=== PATIENT | female | born 1990 | race Caucasian/White ===

== ENCOUNTER 2017-02-25 16:53 | Emergency (ER) | payer MEDICAID ==
--- NOTE | 2017-02-25 18:00 | ED Physician Documentation ---
PD HPI ABD PAIN - Stated complaint Stated Complaint: ABD PX - Chief complaint Chief Complaint: Abd Pain - History obtained from History obtained from: Patient - History of Present Illness Timing - onset: Yesterday Timing - duration: Days (03/25) Timing - details: Gradual onset, Still present Quality: Cramping, Aching, Pain Location: Periumbilical, RLQ Radiation: Lower back Improved by: Position. No: Eating Worsened by: Eating, Moving, Palpation. No: Breathing Associated symptoms: Nausea, Vomiting (few times), Diarrhea (small amount just few times.), Hematochezia (mild red blood with wiping.). No: Fever, Constipation, Melena, Dysuria Similar symptoms before: No diagnosis (she says history of crohns remotely but no regular problems nor meds.) Recently seen: Not recently seen Review of Systems Constitutional: reports: Myalgias. denies: Fever, Chills Eyes: denies: Photophobia Nose: denies: Rhinorrhea / runny nose, Congestion Throat: denies: Sore throat Cardiac: denies: Chest pain / pressure, Palpitations Respiratory: denies: Cough GI: reports: Abdominal Pain, Nausea, Vomiting, Diarrhea. denies: Abdominal Swelling, Constipation : denies: Dysuria, Frequency, Discharge, Irregular menses Skin: denies: Rash, Lesions Neurologic: reports: Generalized weakness. denies: Focal weakness, Numbness Endocrine: denies: Weight loss Immunocompromised: denies: Immunocompromised PD PAST MEDICAL HISTORY - Past Medical History Cardiovascular: None Respiratory: None Neuro: Headache/migraine Endocrine/Autoimmune: None GI: Crohn's disease Psych: Anxiety Musculoskeletal: Chronic back pain - Past Surgical History Past Surgical History: Yes General: Cholecystectomy HEENT: Tonsil/Adenoidectomy - Present Medications Home Medications: Ambulatory Orders Medication Instructions Recorded Confirmed Marijuana 08/29/13 01/31/14 Multivitamin [Multivitamins] 1 cap PO DAILY 01/19/16 02/25/17 Dexamethasone [Decadron] 4 mg PO DAILY #5 tablet 02/25/17 Docusate Sodium 100 mg PO DAILY #20 capsule 02/25/17 Ondansetron HCl [Zofran] 4 mg PO Q6H PRN #20 tablet 02/25/17 Oxycodone HCl/Acetaminophen 1 each PO Q6H PRN #20 tablet 02/25/17 [Percocet 5-325 mg Tablet] - Allergies Allergies/Adverse Reactions: Allergies Allergy/AdvReac Type Severity Reaction Status Date / Time adhesive AdvReac Unknown Rash Verified 02/25/17 17:09 maitake mushroom AdvReac Unknown Respiratory Verified 02/25/17 17:09 soaps AdvReac Unknown Rash Uncoded 02/25/17 17:09 - Social History Does the pt smoke?: No Smoking Status: Never smoker Does the pt drink ETOH?: No Does the pt have substance abuse?: No - Immunizations Immunizations are current?: Yes - POLST Patient has POLST: No PD ED PE NORMAL - Vitals Vital signs reviewed: Yes - General General: Alert and oriented X 3, Well developed/nourished, Other (appears in pain) - HEENT HEENT: PERRL (nonicteric), Ears normal, Pharynx benign. No: Moist mucous membranes - Neck Neck: Supple, no meningeal sign, No adenopathy - Cardiac Cardiac: RRR, No murmur - Respiratory Respiratory: Clear bilaterally - Abdomen Abdomen: Normal bowel sounds, Soft, Non distended, No organomegaly, Other ( tender with guarding RLQ and some percussion tenderness. No rebound. ) - Female Female : Deferred - Rectal Rectal: Deferred - Back Back: No CVA TTP - Derm Derm: Normal color, Warm and dry - Neuro Neuro: Alert and oriented X 3, No motor deficit, Normal speech Results - Vitals Vitals: Oxygen O2 Source Room air - Labs Labs: Laboratory Tests 02/25/17 02/25/17 02/25/17 07:30 18:55 18:55 WBC 8.1 RBC 4.09 L Hgb 12.2 Hct 36.9 L MCV 90.3 MCH 29.9 MCHC 33.1 RDW 13.3 Plt Count 224 MPV 8.6 Neut # 4.5 Lymph # 2.7 [place] # 0.7 Eos # 0.2 Baso # 0.0 Absolute Nucleated RBC 0.00 Nucleated RBC % 0.0 Sodium 138 Potassium 3.3 L Chloride 105 Carbon Dioxide 25 Anion Gap 8.0 BUN 12 Creatinine 0.9 Estimated GFR (MDRD) 75 L Glucose 100 Calcium 8.5 Total Bilirubin 0.7 AST 18 ALT 11 Alkaline Phosphatase 42 Total Protein 6.4 L Albumin 3.7 Globulin 2.7 Albumin/Globulin Ratio 1.4 Lipase 27 Urine Color YELLOW Urine Clarity CLEAR Urine pH 7.0 Ur Specific [place] 1.015 Urine Protein NEGATIVE Urine Glucose (UA) NEGATIVE Urine Ketones NEGATIVE Urine Occult Blood SMALL H Urine Nitrite NEGATIVE Urine Bilirubin NEGATIVE Urine Urobilinogen 0.2 (NORMAL) Ur Leukocyte Esterase NEGATIVE Urine RBC 0-5 Urine WBC 0-3 Ur Squamous Epith Cells RARE Squamous Urine Bacteria Rare Ur Microscopic Review INDICATED Urine Culture Comments NOT INDICATED Urine HCG, Qual NEGATIVE - Rads (name of study) abd CT Radiology: Prelim report reviewed (normal appendix. No other acute process noted. ), EMP read contemporaneously (did CT as I felt appy was highest likely. CT appears normal. ) PD MEDICAL DECISION MAKING - ED course Complexity details: reviewed results, re-evaluated patient (feeling better after couple doses of meds. She says she has h/o Crohns, so consider episode of that versus viral GE or such. CT shows normal appendix, which was initial main concern. ), considered differential, d/w patient Departure - Departure Disposition: 01 Home, Self Care Clinical Impression: Colitis Abdominal pain Qualifiers: Abdominal location: right lower quadrant Qualified Code(s): R10.31 - Right lower quadrant pain Condition: Stable Record reviewed to determine appropriate education?: Yes Instructions: ED Abdominal Pain Unkn Cause Prescriptions: Dexamethasone [Decadron] 4 mg PO DAILY #5 tablet Docusate Sodium 100 mg PO DAILY #20 capsule Ondansetron HCl [Zofran] 4 mg PO Q6H PRN #20 tablet PRN Reason: Nausea / Vomiting Oxycodone HCl/Acetaminophen [Percocet 5-325 mg Tablet] 1 each PO Q6H PRN #20 tablet PRN Reason: Pain Comments: Your CT shows a normal appendix and no other obvious acute process. Your symptoms would go along with the idea of colitis. We will go with some anti- inflammatories of Decadron steroid daily for 5 days. Use a stool softener docusate once or twice daily for the next week to soften the stool. Add Tylenol or Percocet if needed for pain. Recheck if not improved over the next few days in particular if worsening pain, fever, bloody's stool worsening, repetitive vomiting, other concerns. Discharge Date/Time: 02/25/17 21:39
[2017-02-25] MEDS ORDERED: ONDANSETRON 4 MG/2 ML VIAL IVP STA (18:17)
[2017-02-25] MEDS ORDERED: SODIUM CHLORIDE 0.9% 1,000 ML IV ONE (18:17)
[2017-02-25] MEDS ORDERED: KETOROLAC 60 MG/2 ML VIAL IVP STA (18:17)
[2017-02-25] MEDS ORDERED: ONDANSETRON 4 MG/2 ML VIAL ONE (18:43)
[2017-02-25] MEDS ORDERED: KETOROLAC 30 MG/ML VIAL ONE (18:43)
[2017-02-25 19:07] LABS: BASOPHILS % (AUTO) 0.5 %; EOSINOPHILS # (AUTO) 0.2 10^3/uL (0.0-0.7); HGB - HEMOGLOBIN 12.2 g/dL (12.0-16.0); LYMPHOCYTES # (AUTO) 2.7 10^3/uL (1.5-3.5); LYMPHOCYTES % (AUTO) 32.9 %; MEAN CORPUSCULAR HEMOGLOBIN 29.9 pg (27.0-31.0); MEAN CORPUSCULAR HGB CONC 33.1 g/dL (32.0-36.0); MEAN CORPUSCULAR VOLUME 90.3 fL (81.0-99.0); MEAN PLATELET VOLUME 8.6 fL (7.9-10.8); MONOCYTES # (AUTO) 0.7 10^3/uL (0.0-1.0); MONOCYTES % (AUTO) 9.2 %; NEUTROPHILS # (AUTO) 4.5 10^3/uL (1.5-6.6); NEUTROPHILS % (AUTO) 55.4 %; PLT - PLATELET COUNT 224 10^3/uL (130-450); RED BLOOD COUNT 4.09 10^6/uL (4.20-5.40); RED CELL DISTRIBUTION WIDTH 13.3 % (12.0-15.0); WHITE BLOOD COUNT 8.1 x10^3/uL (4.8-10.8)
[2017-02-25 19:15] LABS: ALBUMIN 3.7 g/dL (3.2-5.5); ALBUMIN/GLOBULIN RATIO 1.4 (1.0-2.2); BILIRUBIN,TOTAL 0.7 mg/dL (0.2-1.0); CALCIUM 8.5 mg/dL (8.5-10.3); CREATININE 0.9 mg/dL (0.4-1.0); TOTAL PROTEIN 6.4 g/dL (6.7-8.2)
[2017-02-25] MEDS ORDERED: IOPAMIDOL-300 100 ML VIAL ONE (19:24)
[2017-02-25 19:41] LABS: BILIRUBIN,URINE NEGATIVE (NEGATIVE); GLUCOSE, URINE (UA) NEGATIVE (NEGATIVE); KETONES,URINE (UA) NEGATIVE (NEGATIVE); LEUKOCYTE ESTERASE, URINE NEGATIVE (NEGATIVE); NITRITE,URINE NEGATIVE (NEGATIVE); OCCULT BLOOD,URINE SMALL (NEGATIVE); PROTEIN,URINE NEGATIVE (NEGATIVE); UROBILINOGEN,URINE 0.2 (NORMAL) E.U./dL (NORMAL)
[2017-02-25] MEDS ORDERED: HYDROmorphone 1 MG/ML SYRINGE IVP STA ×2 (19:41→20:57)
[2017-02-25] MEDS ORDERED: METOCLOPRAMIDE 10 MG/2 ML VIAL IVP STA (19:41)
[2017-02-25] MEDS ORDERED: diphenhydrAMINE INJ 50 MG/ML VIAL IVP STA (19:42)
[2017-02-25 19:43] LABS: CLARITY,URINE CLEAR (CLEAR); HCG UR QUAL NEGATIVE
[2017-02-25 19:47] LABS: BACTERIA,URINE Rare /HPF (None Seen); RBC,URINE 0-5 /HPF (0-5); SQUAMOUS EPITHELIAL CELL,UR RARE Squamous (<= Few)
[2017-02-25] MEDS ORDERED: HYDROmorphone 1 MG/ML SYRINGE ONE ×2 (20:01→21:08)
[2017-02-25] MEDS ORDERED: METOCLOPRAMIDE 10 MG/2 ML VIAL ONE (20:01)
[2017-02-25] MEDS ORDERED: diphenhydrAMINE INJ 50 MG/ML VIAL ONE (20:02)
[2017-02-25] MEDS ORDERED: IOPAMIDOL-300 100 ML VIAL IVP ONE (20:12)
--- NOTE | 2017-02-25 20:35 | CT Preliminary Report ---
Exam: CT ABDOMEN/PELVIS W/ IMPRESSION: 1. Status post cholecystectomy. 2. No evidence of appendicitis or other acute inflammatory process. 3. Splenic cyst. [facility] SITE ID: [id number]
--- NOTE | 2017-02-25 20:38 | CT Report ---
EXAM: CT ABDOMEN AND PELVIS EXAM DATE: 02/25/2017 08:01 PM. CLINICAL HISTORY: RLQ abd pain today, worsening. COMPARISONS: 08/30/2013 CT. TECHNIQUE: Routine helical CT imaging was performed through the abdomen and pelvis. IV contrast: 100 ML ISOVUE 300. Enteric contrast: No. Reconstructions: Coronal and sagittal. In accordance with CT protocol optimization, one or more of the following dose reduction techniques w ere utilized for this exam: automated exposure control, adjustment of mA and/or KV based on patient s ize, or use of iterative reconstructive technique. FINDINGS: Lung Bases: Unremarkable. Liver: Normal. No masses. Gallbladder/Bile Ducts: The gallbladder has been removed. No bile duct dilatation. Spleen: There is a 2.6 cm splenic cyst. No splenomegaly. Pancreas: Normal. Adrenal Glands: Normal. Kidneys: Normal. No masses or hydronephrosis. Peritoneal Cavity/Bowel: Normal. No free fluid, free air or adenopathy. No masses or acute inflammato ry process. No evidence of appendicitis. Pelvic Organs: Normal. The bladder and visualized pelvic organs are within normal limits. Vasculature: No aneurysms or other significant abnormality. Bones: No significant abnormality. Other: None. IMPRESSION: 1. Status post cholecystectomy. 2. No evidence of appendicitis or other acute inflammatory process. 3. Splenic cyst. [facility] Referring Provider Line: [phone] SITE ID: [id number]
[2017-02-25] MEDS ORDERED: DEXAMETHASONE 10 MG/ML VIAL IVP STA (20:58)
[2017-02-25] MEDS ORDERED: oxyCODONE/ACET 5/325 Prepack 4 PO STA (20:58)
[2017-02-25] MEDS ORDERED: ONDANSETRON ODT 4 MG Prepack 2 TL PRN (20:58)
[2017-02-25] MEDS ORDERED: DOCUSATE SODIUM 100 MG CAPSULE PO STA (20:59)
[2017-02-25] MEDS ORDERED: DOCUSATE SODIUM 100 MG CAPSULE PO ONE (21:09)
[2017-02-25] MEDS ORDERED: oxyCODONE/ACET 5/325 Prepack 4 PO ONE (21:09)
[2017-02-25] MEDS ORDERED: DEXAMETHASONE 10 MG/ML VIAL ONE (21:09)
[2017-02-25] MEDS ORDERED: ONDANSETRON ODT 4 MG Prepack 2 TL ONE (21:10)
[2017-02-25 21:39] VITALS: BP 108/72
== END 2017-02-25 21:39 | disposition home or self-care (01) ==
LOC: ED 16:53
DX: K52.9 Noninfective gastroenteritis and colitis, unspecified (principal); R10.31 Right lower quadrant pain
CPT/HCPCS: 36415; 74177; 80053; 81001; 81025; 83690; 85025; 96361; 96374; 96375; 96376; 99284; A9270; J1170; Q9967; 81003; 87086

== ENCOUNTER 2018-08-30 14:27 | Outpatient (CLI) | payer MEDICAID ==
[2018-08-30 15:35] LABS: ALT ALANINE AMINOTRANSFERASE 17 IU/L (10-60); AST ASPARTATE AMINOTRANSFERASE 26 IU/L (10-42); CHOL/HDL RATIO 5.7 (<4.4); CHOLESTEROL 269 mg/dL; HDL CHOLESTEROL 47 mg/dL; LDL CHOLESTEROL,CALCULATED 172 mg/dL; LDL/HDL RATIO 3.7 (<4.4); VLDL CHOLESTEROL 50 mg/dL
[2018-08-30 18:19] LABS: HCG,QUALITATIVE BLOOD NEGATIVE
== END 2018-08-30 14:28 | disposition home or self-care (01) ==
LOC: LAB 14:27
PROVIDERS: ATTEND Physician Assistant Medical
DX: L70.0 Acne vulgaris (principal); Z79.899 Other long term (current) drug therapy
CPT/HCPCS: 80061; 83721; 84450; 84460; 84703

== ENCOUNTER 2019-02-23 17:11 | Emergency (ER) | payer MEDICAID | END 2019-02-23 17:22 | disposition left against medical advice (07) | LOC: ED 17:11 | DX: Z53.21 Procedure and treatment not carried out due to patient leaving prior to being seen by health care provider (principal) ==

== ENCOUNTER 2019-08-25 14:11 | Outpatient (CLI) | payer MEDICAID | END 2019-08-25 14:12 | disposition home or self-care (01) | LOC: LAB 14:11 | DX: Z53.9 Procedure and treatment not carried out, unspecified reason (principal) ==

== ENCOUNTER 2019-12-26 14:10 | Outpatient (CLI) | payer MEDICAID | END 2019-12-26 14:11 | disposition home or self-care (01) | LOC: LAB 14:10 | PROVIDERS: ATTEND Internal Medicine | DX: Z01.84 Encounter for antibody response examination (principal) | CPT/HCPCS: 36415; 86735; 86762; 86765 ==

== ENCOUNTER 2020-03-15 13:38 | Emergency (ER) | payer MEDICAID ==
[2020-03-15] MEDS ORDERED: KETOROLAC 30 MG/ML VIAL IVP STA (14:29)
[2020-03-15] MEDS ORDERED: SODIUM CHLORIDE 0.9% 1,000 ML IV STA (14:29)
[2020-03-15] MEDS ORDERED: ONDANSETRON 4 MG/2 ML VIAL IVP STA (14:29)
[2020-03-15] MEDS ORDERED: PIPERACILLIN/TAZOBACTAM 3.375 GM in SODIUM CHLORIDE 0.9% MINIBAG 100 ML IV STA (14:29)
[2020-03-15] MEDS ORDERED: HYDROmorphone 1 MG/ML CARPUJECT IVP STA (14:29)
--- NOTE | 2020-03-15 14:32 | ED Physician Documentation ---
PD HPI HEENT - Stated complaint Stated Complaint: FACE SWELLING - Chief complaint Chief Complaint: Heent - History obtained from History obtained from: Patient - History of Present Illness Timing - onset: Yesterday Timing - duration: Days (1) Timing - details: Abrupt onset, Still present Location: Tooth Improves: Medication Worsens: Everything Associated symptoms: Facial swelling, Other (vomiting) Similar symptoms before: Diagnosis (dental abscess) Recently seen: Other - Additional information Additional information: 29-year-old female was in to see the dentist yesterday had a partial root canal done on the left upper molar and overnight she has had difficulty with facial swelling nausea vomiting and pain. She is unable to keep her pain medications or her antibiotic down. Review of Systems Constitutional: denies: Fever Eyes: denies: Decreased vision Ears: denies: Ear pain Nose: reports: Congestion Throat: reports: Dental pain / toothache Cardiac: denies: Chest pain / pressure, Palpitations Respiratory: denies: Dyspnea, Cough PD PAST MEDICAL HISTORY - Past Medical History Cardiovascular: None Respiratory: None Endocrine/Autoimmune: None GI: Crohn's disease Psych: Anxiety, Bipolar disorder Musculoskeletal: Chronic back pain - Past Surgical History Past Surgical History: Yes General: Cholecystectomy HEENT: Tonsil/Adenoidectomy - Present Medications Home Medications: Ambulatory Orders Medication Instructions Recorded Confirmed Marijuana 08/29/13 01/31/14 Multivitamin [Multivitamins] 1 cap PO DAILY 01/19/16 03/15/20 Ondansetron HCl [Zofran] 4 mg PO Q6H PRN #20 tablet 02/25/17 03/15/20 [place] 300 mg PO DAILY 03/15/20 03/15/20 Methylphenidate HCl [Concerta] 54 mg PO DAILY 03/15/20 03/15/20 Ondansetron Odt [Zofran] 4 mg TL Q6H PRN #10 tablet 03/15/20 hydrOXYzine HCL [Hydroxyzine HCl] 25 mg PO DAILY 03/15/20 03/15/20 lamoTRIgine [Lamictal] 150 mg PO DAILY 03/15/20 03/15/20 - Allergies Allergies/Adverse Reactions: Allergies Allergy/AdvReac Type Severity Reaction Status Date / Time adhesive AdvReac Unknown Rash Verified 03/15/20 13:41 maitake mushroom AdvReac Unknown Respiratory Verified 03/15/20 13:41 soaps AdvReac Unknown Rash Uncoded 02/25/17 17:09 - Social History Does the pt smoke?: No Smoking Status: Former smoker Does the pt drink ETOH?: No Does the pt have substance abuse?: No Substance Use and Type: Marijuana - Immunizations Immunizations are current?: Yes - POLST Patient has POLST: No PD ED PE NORMAL - Vitals Vital signs reviewed: Yes (Hypertensive) - General General: Alert and oriented X 3, Well developed/nourished, Other (Appears to be in pain with swelling to the left face and tears) - HEENT HEENT: Atraumatic, PERRL, Other (Swelling to the left face over the maxilla and examination of the tooth shows what appears to be a filled area recently drilled and the tooth itself is tender there is no swelling to the lingular or buccal folds. 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, No motor deficit, No sensory deficit, Normal speech Eye Opening: Spontaneous Motor: Obeys Commands Verbal: Oriented GCS Score: 15 - Psych Psych: Other (Mood is painful affect is flattened) Results - Vitals Vitals: Vital Signs - 24 hr 03/15/20 13:41 Temperature 36 C L Heart Rate 70 Respiratory 18 Rate Blood Pressure 139/78 H O2 Saturation 97 Oxygen O2 Source Room air - Labs Labs: Laboratory Tests 03/15/20 03/15/20 15:31 15:31 WBC 11.7 H RBC 4.42 Hgb 13.2 Hct 40.6 MCV 91.9 MCH 29.9 MCHC 32.5 RDW 12.8 Plt Count 266 MPV 10.0 Neut # (Auto) 9.5 H Lymph # (Auto) 1.1 L [place] # (Auto) 0.9 Eos # (Auto) 0.1 Baso # (Auto) 0.0 Absolute Nucleated RBC 0.00 Nucleated RBC % 0.0 Sodium 138 Potassium 3.7 Chloride 106 Carbon Dioxide 22 Anion Gap 10.0 BUN 11 Creatinine 0.6 Estimated GFR (MDRD) 117 Glucose 115 H Calcium 8.9 Total Bilirubin 0.4 AST 20 ALT 14 Alkaline Phosphatase 59 Total Protein 7.3 Albumin 3.9 Globulin 3.4 Albumin/Globulin Ratio 1.1 Lipase 19 L PD MEDICAL DECISION MAKING - ED course Complexity details: considered differential, d/w patient ED course: 29-year-old female with a partial root canal and evidence of infection has not been able to hold her pain medication or antibiotic down. She is administered a liter of saline Zosyn intravenously Zofran Toradol and Dilaudid. Departure - Departure Disposition: 01 Home, Self Care Clinical Impression: Dental abscess Condition: Stable Instructions: ED Abscess Dental Follow-Up: Laly Harding MD [Primary Care Provider] - Prescriptions: Ondansetron Odt [Zofran] 4 mg TL Q6H PRN #10 tablet PRN Reason: Nausea / Vomiting
[2020-03-15 15:42] LABS: BASOPHILS % (AUTO) 0.2 %; EOSINOPHILS # (AUTO) 0.1 10^3/uL (0.0-0.7); EOSINOPHILS % (AUTO) 0.6 %; HGB - HEMOGLOBIN 13.2 g/dL (12.0-16.0); LYMPHOCYTES # (AUTO) 1.1 10^3/uL (1.5-3.5); LYMPHOCYTES % (AUTO) 9.7 %; MEAN CORPUSCULAR HEMOGLOBIN 29.9 pg (27.0-31.0); MEAN CORPUSCULAR HGB CONC 32.5 g/dL (32.0-36.0); MEAN CORPUSCULAR VOLUME 91.9 fL (81.0-99.0); MONOCYTES # (AUTO) 0.9 10^3/uL (0.0-1.0); NEUTROPHILS # (AUTO) 9.5 10^3/uL (1.5-6.6); NEUTROPHILS % (AUTO) 81.2 %; PLT - PLATELET COUNT 266 10^3/uL (130-450); RED BLOOD COUNT 4.42 10^6/uL (4.20-5.40); RED CELL DISTRIBUTION WIDTH 12.8 % (12.0-15.0); WHITE BLOOD COUNT 11.7 x10^3/uL (4.8-10.8)
[2020-03-15 15:56] LABS: ALBUMIN 3.9 g/dL (3.2-5.5); ALBUMIN/GLOBULIN RATIO 1.1 (1.0-2.2); BILIRUBIN,TOTAL 0.4 mg/dL (0.2-1.0); CALCIUM 8.9 mg/dL (8.5-10.3); CREATININE 0.6 mg/dL (0.4-1.0); TOTAL PROTEIN 7.3 g/dL (6.7-8.2)
[2020-03-15] MEDS ORDERED: DEXAMETHASONE 10 MG/ML VIAL IVP STA (16:04)
[2020-03-15 16:54] VITALS: BP 112/67
== END 2020-03-15 16:55 | disposition home or self-care (01) ==
LOC: ED 13:38
DX: K04.7 Periapical abscess without sinus (principal); Z98.818 Other dental procedure status; R11.2 Nausea with vomiting, unspecified; Z87.891 Personal history of nicotine dependence
CPT/HCPCS: 36415; 80053; 83690; 85025; 96365; 96375; 99284; 99285; J1170

== ENCOUNTER 2020-03-18 19:22 | Emergency (ER) | payer MEDICAID ==
[2020-03-18] MEDS ORDERED: AMOX/CLAV 875 MG/125 MG TABLET PO STA (19:47)
[2020-03-18] MEDS ORDERED: oxyCODONE 5 MG TABLET PO STA (19:47)
--- NOTE | 2020-03-18 19:48 | ED Physician Documentation ---
History of Present Illness - Stated complaint Stated Complaint: TOOTH PX - Chief complaint Chief Complaint: Heent - History obtained from History obtained from: Patient - Additonal information Additional information: 29-year-old female presents to the emergency department with worsening left upper mouth pain. She underwent a partial root canal on03/14/2020. A partial Root canal was done secondary to infection. The patient was placed on amoxicillin and has a follow-up appointment with her oral surgeon scheduled for 03/30/2020. She was seen here in the emergency department 03/15/[address] Stefania padron. She presented to the ER because she been having nausea and was unable to keep her amoxicillin down. She was given an IV dose of Zosyn and discharged home. Since being seen in the emergency department 3 days ago she reports that the swelling is essentially the same though may be somewhat improved however the pain is worsening and persistent. She is taking ibuprofen and Tylenol without relief. no fevers, no trismus. no dysphonia. normal swallow She does report a history of C. difficile infection about 5 years ago. This was the reason that her dentist did not prescribe Augmentin. She also is honest about a history of previous opiate abuse. Review of Systems Constitutional: denies: Fever, Chills Eyes: reports: Reviewed and negative Ears: reports: Reviewed and negative Nose: reports: Reviewed and negative Throat: reports: Dental pain / toothache. denies: Oral lesions / sores, Sore throat, Swollen tonsils Cardiac: reports: Reviewed and negative Respiratory: reports: Reviewed and negative GI: reports: Reviewed and negative : reports: Reviewed and negative Skin: reports: Reviewed and negative Musculoskeletal: reports: Neck pain PD PAST MEDICAL HISTORY - Past Medical History Past Medical History: Yes Cardiovascular: None Respiratory: None Endocrine/Autoimmune: None GI: Crohn's disease Psych: Anxiety, Bipolar disorder Musculoskeletal: Chronic back pain - Past Surgical History Past Surgical History: Yes General: Cholecystectomy HEENT: Tonsil/Adenoidectomy - Present Medications Home Medications: Ambulatory Orders Medication Instructions Recorded Confirmed Marijuana 08/29/13 01/31/14 Multivitamin [Multivitamins] 1 cap PO DAILY 01/19/16 03/18/20 Ondansetron HCl [Zofran] 4 mg PO Q6H PRN #20 tablet 02/25/17 03/18/20 [place] 300 mg PO DAILY 03/15/20 03/18/20 Methylphenidate HCl [Concerta] 54 mg PO DAILY 03/15/20 03/18/20 Ondansetron Odt [Zofran] 4 mg TL Q6H PRN #10 tablet 03/15/20 03/18/20 hydrOXYzine HCL [Hydroxyzine HCl] 25 mg PO DAILY 03/15/20 03/18/20 lamoTRIgine [Lamictal] 150 mg PO DAILY 03/15/20 03/18/20 Amox/Clav 875/125 [Augmentin] 1 each PO Q12H #14 tablet 03/18/20 L. Acidophilus/L.bulgaricus 1 each PO BID #30 tablet 03/18/20 [Lactobacillus Tablet] Oxycodone HCl/Acetaminophen 1 - 2 each PO BID #10 tablet 03/18/20 [Percocet 5-325 mg Tablet] - Allergies Allergies/Adverse Reactions: Allergies Allergy/AdvReac Type Severity Reaction Status Date / Time adhesive AdvReac Unknown Rash Verified 03/15/20 13:41 maitake mushroom AdvReac Unknown Respiratory Verified 03/15/20 13:41 soaps AdvReac Unknown Rash Uncoded 02/25/17 17:09 - Social History Does the pt smoke?: No Smoking Status: Never smoker Does the pt drink ETOH?: No Does the pt have substance abuse?: No - Immunizations Immunizations are current?: Yes - POLST Patient has POLST: No PD ED PE EXPANDED - General General: Alert, In Pain - HEENT HEENT: No: Dentition normal (Swelling of the left face from Nabel nasolabial fold to the cheek. Tooth #15 is partially drilled and decayed. There is no gumline swelling or fluctuance. No drainage visible. generally tender) Results - Vitals Vitals: Vital Signs - 24 hr 03/18/20 03/18/20 19:26 19:30 Temperature 36.7 C 36.7 C Heart Rate 71 71 Respiratory 16 16 Rate Blood Pressure 118/73 118/73 O2 Saturation 99 99 Oxygen O2 Source Room air PD MEDICAL DECISION MAKING - ED course Complexity details: reviewed results, re-evaluated patient, considered differential ED course: 29-year-old female presents emergency department with worsening left upper mouth pain and facial swelling at the site of a recent partial root canal. She was seen in this ER for similar 3 days ago. Though the swelling has not worsened it has not improved and she is having worsening pain. She does report a history of C. difficile infection however Augmentin is likely a better antibiotic of choice to treat dental infections. We did have a risk-benefit discussion at the bedside and patient agrees to begin Augmentin and stop her amoxicillin. I have advised her to take lactobacillus with this every day. I will also write a very limited prescription for Percocet use at home as it is exquisitely tender. Reassuringly she has no fevers, trismus, or dysphonia. She has a normal swallow She will be calling her oral surgeon on Friday for sooner follow-up. If her symptoms are worsening she has fevers facial redness increased swelling she will return immediately to the ER. At that time we may consider CT imaging of the face. Departure - Departure Disposition: , Self Care Clinical Impression: Dental abscess Condition: Stable Record reviewed to determine appropriate education?: Yes Prescriptions: Amox/Clav 875/125 [Augmentin] 1 each PO Q12H #14 tablet L. Acidophilus/L.bulgaricus [Lactobacillus Tablet] 1 each PO BID #30 tablet Oxycodone HCl/Acetaminophen [Percocet 5-325 mg Tablet] 1 - 2 each PO BID #10 tablet Comments: Cheryle please stop taking the amoxicillin. I would like you to instead begin taking the Augmentin tomorrow. There is a higher risk of developing C. difficile diarrhea with this antibiotic however I do feel will better treat the infection in your mouth. Please also take lactobacillus 2-3 times a day when taking this antibiotic. I have prescribed a very limited amount of Percocet to help with your pain. It is critical that you discuss your 2 ED visits with your oral surgeon on Friday. I would like you to be seen sooner than March 30. If at any point you have increased swelling, any fevers, cannot speak or swallow normally please return immediately to the ER. Do not drive if taking Percocet it can legally intoxicated you and impair your ability to operate a vehicle
[2020-03-18 20:04] VITALS: BP 115/73
== END 2020-03-18 20:03 | disposition home or self-care (01) ==
LOC: ED 19:22
DX: K04.7 Periapical abscess without sinus (principal); Z98.818 Other dental procedure status; Z87.19 Personal history of other diseases of the digestive system
CPT/HCPCS: 99283; A9270

== ENCOUNTER 2020-08-25 01:27 | Emergency (ER) | payer MEDICAID ==
--- OUTSIDE RECORDS SUMMARY | 2020-08-25 01:32 | EXTERNAL MEDICAL SUMMARY RPT | Continuity of Care Document ---
:1990 Demographics Phone Unavailable Preferred Language Unknown Marital Status Unknown Buddhist Affiliation Unknown Race Unknown Ethnic Group Unknown Author Organization [facility] Address [address] [place] [address] Phone Allergies Encounters Medications Problems Results
--- OUTSIDE RECORDS SUMMARY | 2020-08-25 01:37 | EXTERNAL MEDICAL SUMMARY RPT | Continuity of Care Document ---
:1990 Demographics Phone Unavailable Preferred Language Unknown Marital Status Unknown Bahai Affiliation Unknown Race Unknown Ethnic Group Unknown Author Organization [facility] Address [address] [place] [address] Phone Allergies Encounters Medications Problems Results
--- NOTE | 2020-08-25 01:40 | ED Physician Documentation ---
PD HPI LOWER EXT INJURY - Stated complaint Stated Complaint: L ANKLE PX - History obtained from History obtained from: Patient - History of Present Illness PD HPI LOW EXT INJURY LOCATION: Left, Ankle Type of injury: Twist (inversion, stepping on edge of curb.) Timing - onset: Yesterday Timing - details: Abrupt onset Improved by: Immobilization Worsened by: Moving, Palpating, Other (walking) Associated symptoms: Swelling. No: Weakness, Numbness Similar symptoms before: Has not had sx before Review of Systems Constitutional: denies: Fever, Chills Nose: denies: Rhinorrhea / runny nose, Congestion Throat: denies: Sore throat Respiratory: denies: Cough Skin: denies: Abrasion (s), Laceration (s) Musculoskeletal: denies: Back pain Neurologic: denies: Focal weakness, Numbness PD PAST MEDICAL HISTORY - Past Medical History Cardiovascular: None Respiratory: None Endocrine/Autoimmune: None GI: Crohn's disease Psych: Anxiety, Bipolar disorder Musculoskeletal: Chronic back pain - Past Surgical History Past Surgical History: Yes General: Cholecystectomy HEENT: Tonsil/Adenoidectomy - Present Medications Home Medications: Ambulatory Orders Medication Instructions Recorded Confirmed Multivitamin [Multivitamins] 1 cap PO DAILY 01/19/16 08/25/20 [place] [[place] Carbonate] 300 mg PO DAILY 03/15/20 08/25/20 Methylphenidate HCl [Concerta] 54 mg PO DAILY 03/15/20 08/25/20 hydrOXYzine HCL [Hydroxyzine HCl] 25 mg PO HS 03/15/20 08/25/20 lamoTRIgine [Lamictal] 150 mg PO DAILY 03/15/20 08/25/20 - Allergies Allergies/Adverse Reactions: Allergies Allergy/AdvReac Type Severity Reaction Status Date / Time adhesive AdvReac Unknown Rash Verified 08/25/20 01:44 maitake mushroom AdvReac Unknown Respiratory Verified 08/25/20 01:44 soaps AdvReac Unknown Rash Uncoded 02/25/17 17:09 - Social History Does the pt smoke?: No Smoking Status: Never smoker Does the pt drink ETOH?: No Does the pt have substance abuse?: No - Immunizations Immunizations are current?: Yes - POLST Patient has POLST: No PD ED PE NORMAL - Vitals Vital signs reviewed: Yes - General General: Alert and oriented X 3, No acute distress, Well developed/nourished - Derm Derm: Normal color, Warm and dry, No rash - Extremities Extremities: Other (left ankle tender at ATFL area. Achilees and medially not tender. Mild swelling laterally. Hurts for flex/ext and eversion of ankle.) - Neuro Neuro: No motor deficit, No sensory deficit Results - Vitals Vitals: Vital Signs - 24 hr 08/25/20 08/25/20 08/25/20 01:41 02:42 03:59 Temperature 36.8 C Heart Rate 91 76 Respiratory 16 15 16 Rate Blood Pressure 131/72 H 120/76 O2 Saturation 100 99 Oxygen O2 Source Room air - Rads (name of study) left ankle Radiology: Prelim report reviewed (no fractures), See rad report PD MEDICAL DECISION MAKING - ED course Complexity details: reviewed results, considered differential (ankle sprain), d/w patient Departure - Departure Disposition: 01 Home, Self Care Clinical Impression: Sprain of lateral ligament of ankle joint Condition: Stable Instructions: ED Sprain Ankle Follow-Up: Laly Harding MD [Primary Care Provider] - Comments: Use ankle brace when up and around for the next 2 to 3 weeks. Ice elevate and rest the ankle often to reduce swelling. Anti-inflammatory such as ibuprofen 3 times a day with food. To that add Tylenol every 4-6 hours if needed for pain. I would anticipate improvement in the pain over the next 4 to 5 days but 2 to 3 weeks for good resolution of the ankle discomfort. Follow-up with your primary care in about a week for recheck. Discharge Date/Time: 08/25/20 04:00
[2020-08-25 04:00] VITALS: BP 120/76
--- NOTE | 2020-08-25 08:58 | XRAY Report ---
PROCEDURE: Ankle 3 View LT INDICATIONS: SWELLING/PAIN/NUMB + TINGLING L ANKLE TECHNIQUE: 3 views of the ankle were acquired. COMPARISON: None FINDINGS: Bones: No fractures or dislocations. Ankle mortise is normally aligned. No suspicious bony lesions . Soft tissues: No tibiotalar joint effusion. Achilles tendon appears normal. Mild lateral malleolus soft tissue swelling. IMPRESSION: Lateral malleolus soft tissue swelling. No underlying fracture or dislocation. If there is persistent clinical concern for a radiographically occult fracture, recommend immobilizat ion and repeat imaging in 10 to 14 days. No significant discrepancy with initial interpretation by overnight radiologist. Reviewed by: Matt Dominguez MD on 08/25/2020 8:56 AM PDT Approved by: Matt Dominguez MD on 08/25/2020 8:56 AM PDT Station ID: [id number]
== END 2020-08-25 04:00 | disposition home or self-care (01) ==
LOC: ED 01:27
DX: S93.492A Sprain of other ligament of left ankle, initial encounter (principal); X50.1XXA Overexertion from prolonged static or awkward postures, initial encounter; Y93.01 Activity, walking, marching and hiking; Y92.480 Sidewalk as the place of occurrence of the external cause
CPT/HCPCS: 99282; 99283

== ENCOUNTER 2020-12-04 06:34 | Emergency (ER) | payer MEDICAID ==
[2020-12-04] MEDS ORDERED: KETOROLAC 30 MG/ML VIAL IM STA (07:43)
[2020-12-04] MEDS ORDERED: GABAPENTIN 100 MG CAPSULE PO STA (07:43)
--- NOTE | 2020-12-04 07:53 | ED Physician Documentation ---
History of Present Illness - Stated complaint Stated Complaint: L ARM NERVE PX - Chief complaint Chief Complaint: Ext Problem - History obtained from History obtained from: Patient - Additonal information Additional information: Pt comes to the emergency department for chief complaint of pain shooting down her left arm from her shoulder since about 3:00 this morning. She states that the pain comes in pulses to some degree but is mostly waxing or waning. It feels like a sharp, shooting sensation that goes from her anterior shoulder all the way down into her palm and fingers. Nothing really seems to make it better or worse. She has not taken anything at home for the pain. Patient denies any overwork or strain to the shoulder. She has a history of scoliosis and has chronic back and neck problems. Patient states she has been not doing very much a week because she is sad over the loss of her beloved cat about a week ago. She cannot think of anything that would have strained the shoulder. She states she also has a sense of numbness on the flexor aspect of her forearm and the palm of her hands. No chest pain. No shortness of breath, nausea, lightheadedness, or abdominal pain. No pain or swelling in either of her lower extremities. No history of DVT. She states both her grandfather and uncle had MIs, though her grandfather was in his 80s. She states her uncle was in his upp er 30s when he dropped from what was presumably an GA. Patient denies any history of hypertension or diabetes. She has a history of Crohn's disease, anxiety, and bipolar disorder as well as the scoliosis. No other complaints at this time Review of Systems Ten Systems: 10 systems reviewed and negative Constitutional: reports: Reviewed and negative Eyes: reports: Reviewed and negative Ears: reports: Reviewed and negative Nose: reports: Reviewed and negative Throat: reports: Reviewed and negative Cardiac: reports: Reviewed and negative Respiratory: reports: Reviewed and negative GI: reports: Reviewed and negative : reports: Reviewed and negative Skin: reports: Reviewed and negative Musculoskeletal: reports: Extremity pain, Joint pain Neurologic: reports: Reviewed and negative Psychiatric: reports: Reviewed and negative Endocrine: reports: Reviewed and negative Immunocompromised: reports: Reviewed and negative PD PAST MEDICAL HISTORY - Past Medical History Past Medical History: Yes Cardiovascular: None Respiratory: None Neuro: Migraines Endocrine/Autoimmune: None GI: Crohn's disease DIRECTOR TRANSITION: None : None HEENT: None Psych: Anxiety, Bipolar disorder Musculoskeletal: Chronic back pain Derm: None - Past Surgical History Past Surgical History: Yes General: Cholecystectomy HEENT: Tonsil/Adenoidectomy - Present Medications Home Medications: Ambulatory Orders Medication Instructions Recorded Confirmed Methylphenidate HCl [Concerta] 54 mg PO DAILY 03/15/20 12/04/20 lamoTRIgine [Lamictal] 150 mg PO DAILY 03/15/20 12/04/20 Bcp 1 tab PO DAILY 12/04/20 Gabapentin [Neurontin] 300 mg PO TID PRN #20 12/04/20 Morphine ER [Morphine Sulfate ER] 15 mg PO DAILY PRN 12/04/20 12/04/20 - Allergies Allergies/Adverse Reactions: Allergies Allergy/AdvReac Type Severity Reaction Status Date / Time adhesive AdvReac Unknown Rash Verified 08/25/20 01:44 maitake mushroom AdvReac Unknown Respiratory Verified 08/25/20 01:44 soaps AdvReac Unknown Rash Uncoded 02/25/17 17:09 - Social History Does the pt smoke?: No Smoking Status: Never smoker Does the pt drink ETOH?: No Does the pt have substance abuse?: No - Immunizations Immunizations are current?: Yes - POLST Patient has POLST: No PD ED PE NORMAL - Vitals Vital signs reviewed: Yes - General General: Alert and oriented X 3, No acute distress, Well developed/nourished - HEENT HEENT: Atraumatic, PERRL, EOMI, Moist mucous membranes - Neck Neck: Supple, no meningeal sign, No bony TTP, Other (No muscular tenderness.) - Cardiac Cardiac: RRR, No murmur, Strong equal pulses - Respiratory Respiratory: No respiratory distress, Clear bilaterally - Abdomen Abdomen: Soft, Non tender, Non distended - Derm Derm: Normal color, Warm and dry, No rash - Extremities Extremities: No deformity, No edema, No calf tenderness / cord - Neuro Neuro: Alert and oriented X 3, psychological anthropologist 2-12 intact, No motor deficit, Normal speech, Other (Mildly decreased sensation on exam of left palm.) - Psych Psych: Normal mood, Normal affect Results - Vitals Vitals: Oxygen O2 Source Room air - EKG (time done) 0754 Rate: Rate (enter#) (64) Rhythm: NSR Soso: Normal Intervals: Normal [place] QRS: Normal Ischemia: Normal ST segments Compare to prior EKG: Old EKG unavailable - Labs Labs: Laboratory Tests 12/04/20 07:55 D-Dimer < 200.0 L - Rads (name of study) CXR Radiology: Final report received, EMP read indepedently, See rad report (neg) PD MEDICAL DECISION MAKING - ED course Complexity details: reviewed results, re-evaluated patient, considered differential, d/w patient ED course: The patient's pain sounded most likely to be related to a nerve, but given that patient did not have any obvious exacerbating or instigating factors, I did go ahead and evaluate her also with chest x-ray, EKG, and D-dimer. She was treated symptomatically with gabapentin and Toradol. Work-up was negative. Pt was given a prescription for gabapentin, and was advised to follow up with her PCP. Departure - Departure Disposition: 01 Home, Self Care Clinical Impression: Acute extremity pain Condition: Stable Instructions: ED Shoulder Pain [facility] Prescriptions: Gabapentin [Neurontin] 300 mg PO TID PRN #20 PRN Reason: Pain Comments: Your D-dimer, EKG, and chest x-ray all look good. There is no evidence of an emergent cause of your symptoms today. Most likely, you have a nerve impingement coming through the shoulder that is causing the pain you are having. This will most likely get better on its own, but you may use gabapentin and ibuprofen to help with this. Please follow-up with your primary care physician if you are not feeling better in the next week. Discharge Date/Time: 12/04/20 08:57
--- NOTE | 2020-12-04 08:02 | XRAY Report ---
PROCEDURE: Chest 1 View X-Ray INDICATIONS: chest pain TECHNIQUE: One view of the chest was acquired. COMPARISON: None FINDINGS: Surgical changes and devices: None. Lungs and pleura: No pleural effusions or pneumothorax. Lungs are clear. Mediastinum: Mediastinal contours appear normal. Heart size is normal. Bones and chest wall: No suspicious bony lesions. Overlying soft tissues appear unremarkable. IMPRESSION: No evidence acute pulmonary process. Reviewed by: Ismael Zamora MD on 12/04/2020 8:00 AM PDT Approved by: Ismael Zamora MD on 12/04/2020 8:00 AM PDT Station ID: [id number]
[2020-12-04 08:57] VITALS: BP 118/77
== END 2020-12-04 08:57 | disposition home or self-care (01) ==
LOC: ED 06:34
DX: M79.602 Pain in left arm (principal); R20.0 Anesthesia of skin
CPT/HCPCS: 36415; 71045; 85379; 93005; 96372; 99284; A9270

== ENCOUNTER 2021-07-06 15:38 | Outpatient (CLI) | payer MEDICAID ==
[2021-07-06 16:40] LABS: THYROID STIMULATING HORMONE 0.32 uIU/mL (0.34-5.60)
[2021-07-06 16:45] LABS: PROLACTIN 6.54 ng/mL
== END 2021-07-06 15:39 | disposition home or self-care (01) ==
LOC: LAB 15:38
PROVIDERS: ATTEND Obstetrics & Gynecology
DX: N64.52 Nipple discharge (principal)
CPT/HCPCS: 36415; 84146; 84443; 86735; 86762; 86765

== ENCOUNTER 2022-04-04 12:25 | Outpatient (CLI) | payer MEDICAID ==
[2022-04-04 12:49] LABS: BASOPHILS % (AUTO) 0.6 %; EOSINOPHILS # (AUTO) 0.3 10^3/uL (0.0-0.7); EOSINOPHILS % (AUTO) 4.5 %; HCT - HEMATOCRIT 43.3 % (37.0-47.0); HGB - HEMOGLOBIN 13.7 g/dL (12.0-16.0); MEAN CORPUSCULAR HEMOGLOBIN 29.2 pg (27.0-31.0); MEAN CORPUSCULAR HGB CONC 31.6 g/dL (32.0-36.0); MEAN CORPUSCULAR VOLUME 92.3 fL (81.0-99.0); MEAN PLATELET VOLUME 10.2 fL (7.9-10.8); MONOCYTES # (AUTO) 0.5 10^3/uL (0.0-1.0); MONOCYTES % (AUTO) 6.3 %; NEUTROPHILS # (AUTO) 4.3 10^3/uL (1.5-6.6); NEUTROPHILS % (AUTO) 60.3 %; PLT - PLATELET COUNT 410 10^3/uL (130-450); RED BLOOD COUNT 4.69 10^6/uL (4.20-5.40); WHITE BLOOD COUNT 7.1 x10^3/uL (4.8-10.8)
[2022-04-04 13:02] LABS: ALBUMIN 4.2 g/dL (3.2-5.5); ALBUMIN/GLOBULIN RATIO 1.1 (1.0-2.2); ALKALINE PHOSPHATASE 56 IU/L (42-121); ALT ALANINE AMINOTRANSFERASE 15 IU/L (10-60); AST ASPARTATE AMINOTRANSFERASE 20 IU/L (10-42); BILIRUBIN,TOTAL 0.8 mg/dL (0.2-1.0); BUN - BLOOD UREA NITROGEN 10 mg/dL (6-20); CALCIUM 9.1 mg/dL (8.5-10.3); CARBON DIOXIDE - CO2 24 mmol/L (21-32); CHLORIDE 101 mmol/L (101-111); CHOL/HDL RATIO 3.5 (<4.4); CHOLESTEROL 249 mg/dL; CREATININE 0.8 mg/dL (0.4-1.0); GFR - MDRD 83 (>89); GLUCOSE 107 mg/dL (70-100); HDL CHOLESTEROL 71 mg/dL; LDL CHOLESTEROL,CALCULATED 151 mg/dL; LDL/HDL RATIO 2.1 (<4.4); POTASSIUM 4.1 mmol/L (3.5-5.0); SODIUM 132 mmol/L (135-145); TOTAL PROTEIN 8.1 g/dL (6.7-8.2); TRIGLYCERIDES 133 mg/dL; VLDL CHOLESTEROL 27 mg/dL
[2022-04-04 13:12] LABS: THYROID STIMULATING HORMONE 1.01 uIU/mL (0.34-5.60)
[2022-04-04 13:15] LABS: FREE T4 (FREE THYROXINE) 0.82 ng/dL (0.58-1.64)
[2022-04-04 13:35] LABS: LITHIUM 0.42 mmol/L
[2022-04-05 14:00] LABS: ESTIMATED AVERAGE GLUCOSE 97 mg/dL (70-100)
== END 2022-04-04 12:26 | disposition home or self-care (01) ==
LOC: LAB 12:25
PROVIDERS: ATTEND Internal Medicine
DX: Z00.00 Encounter for general adult medical examination without abnormal findings (principal); R10.9 Unspecified abdominal pain; F41.9 Anxiety disorder, unspecified; F31.9 Bipolar disorder, unspecified; M54.9 Dorsalgia, unspecified; K50.90 Crohn's disease, unspecified, without complications; R11.0 Nausea; Z79.899 Other long term (current) drug therapy; R73.01 Impaired fasting glucose
CPT/HCPCS: 36415; 80053; 80061; 80178; 83036; 83721; 84439; 84443; 85025

== ENCOUNTER 2022-04-21 19:50 | Emergency (ER) | payer MEDICAID ==
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
--- OUTSIDE RECORDS SUMMARY | 2022-04-21 20:14 | EXTERNAL MEDICAL SUMMARY RPT | Continuity of Care Document ---
:1990 Author Organization [facility] Address [address] [place] [address] Phone Care Team Providers Name Role Phone Laly Steve Unavailable Unavailable Allergies No information. Encounters No information. Functional Status No information. Immunizations No information. Medications date description facility 2022-02-08 00:00 Methylphenidate [facility] 2022-01-30 00:00 [place] Carbon[place] [facility] Problems No information. Procedures No information. Results/Labs No information. Social History date description facility 2022-01-30 00:00 Ex-smoker (finding) [facility] Vital Signs No information.
[2022-04-21 21:13] VITALS: BP 111/68
--- NOTE | 2022-04-21 21:58 | XRAY Report ---
PROCEDURE: Cervical Spine Comp w/Flex/Ext INDICATIONS: pain, radiculopathy, no trauma TECHNIQUE: 7 views of the cervical spine were acquired. COMPARISON: None. FINDINGS: Bones: No fractures or dislocations to the C7-T1 level. There is straightening of the cervical lord osis. No suspicious bony lesions. Disc spaces appear preserved. There is normal range of motion betwe en flexion and extension. Minimal retrolisthesis demonstrated at C2-C3 on extension. The neuroforamin a appear widely patent bilaterally. Soft tissues: Prevertebral soft tissues are normal in thickness. IMPRESSION: 1. No fracture or subluxation. 2. Minimal retrolisthesis at C2-C3 on extension. 3. Widely patent appearance of the neuroforamina bilaterally. Reviewed by: Rogelio Burch MD on 04/21/2022 9:57 PM PST Approved by: Rogelio Burch MD on 04/21/2022 9:57 PM PST Station ID: [id number]
== END 2022-04-21 21:15 | disposition home or self-care (01) ==
LOC: ED 19:50
DX: M54.12 Radiculopathy, cervical region (principal); K50.90 Crohn's disease, unspecified, without complications
CPT/HCPCS: 99283

== ENCOUNTER 2022-06-13 07:34 | Outpatient (CLI) | payer MEDICAID ==
[2022-06-13 08:45] LABS: LITHIUM 0.59 mmol/L
== END 2022-06-13 07:35 | disposition home or self-care (01) ==
LOC: LAB 07:34
PROVIDERS: ATTEND Psychiatry & Neurology Psychiatry
DX: F31.9 Bipolar disorder, unspecified (principal); Z79.899 Other long term (current) drug therapy
CPT/HCPCS: 36415; 80178